=== PATIENT | male | born 1975 | race Caucasian/White ===

== ENCOUNTER → 2025-02-24 13:22 | Outpatient (REF) | payer OTHER, SELFPAY | LOC: MRI 13:22 | PROVIDERS: ATTENDING PHYSICIAN Internal Medicine Nephrology; FAMILY PHYSICIAN Family Medicine | DX: M54.12 Radiculopathy, cervical region (principal); M54.2 Cervicalgia; M48.02 Spinal stenosis, cervical region | CPT/HCPCS: 72141 ==